=== PATIENT | female | born 1990 | race Caucasian/White ===

== ENCOUNTER → 2021-11-13 13:16 | Outpatient (BNVA) | payer OTHER, SELFPAY | PROVIDERS: Visit Provider Physician Assistant | DX: S46.811A Strain of other muscles, fascia and tendons at shoulder and upper arm level, right arm, initial encounter (principal); S29.012A Strain of muscle and tendon of back wall of thorax, initial encounter; X50.3XXA Overexertion from repetitive movements, initial encounter | CPT/HCPCS: 99203 ==

== ENCOUNTER 2023-12-25 10:42 | Outpatient (AMB) | payer OTHER, SELFPAY ==
--- NOTE | 2023-12-25 10:43 | AM.OFFWIN_ITS ---
Intake Vital Signs 12/25/23 10:46 Height 5 ft 4 in Weight 151 lb 2 oz BMI 25.9 BP 98/62 Blood Pressure Location Lt brachial Position Sitting Respiration 13 Pulse 90 Pulse Source Pulse Oximeter Temp 98.1 F Temp Source Oral Pulse Oximetry (%) 99 Oxygen Delivery Method Room Air Intake Visit Reasons: est/neck pain/left side swollen Intake Note: Patient complaining of neck pain on her left side x 3 days. Allergies No Known Allergies Allergy (Verified 12/25/23 11:06) Medication List - [facility]25[facility]23 [facility] No Known Home Meds Do you need a note to return to daycare/school/sports/work: Yes Return to daycare/school/sports/work/other note: work HPI HPI Comments History of Present Illness Details 33-year-old female here today with chief complaints of a sore neck that started on Thursday night. Reports that she was in her normal state of health when she noticed the soreness on the left side of her neck. She denies any overt injury or trauma. Over the next 3 days the pain continued. She has been using ibuprofen, warm baths, hot and cold compresses to treat at home. Reports that the heat does help. She also makes a mention that when she eats bread the back of her neck gets more inflamed. She denies any fever, chills, sore throat, trouble swallowing. Exam Awake alert oriented, no acute distress PERRLA, EOMI, no photophobia No cervical adenopathy Pharynx within normal limits Full but restricted range of motion right lateral due to pain, no nuchal rigidity, no pain with palpation, no paraspinal or cervical spine tenderness Skin intact without rashes Plan We will treat her with diclofenac and Zanaflex. Continue supportive care. Do not take dbed-yud-smanzsm NSAIDs while using diclofenac. Take with food to decreased GI upset. Gentle stretching and czbvb-mj-lvwlyd exercises encouraged. Follow up with your primary care. This note is constructed using voice recognition software. While every effort has been made to ensure accuracy in integration consultant, still errors may have been included Sometimes, these errors may affect the content or meaning of the given sentence . Physical Exam Vital Signs: Last Vital Signs Temp 98.1 F 12/25/23 10:46 Pulse 90 12/25/23 10:46 Resp 13 12/25/23 10:46 BP 98/62 12/25/23 10:46 Pulse Ox 99 12/25/23 10:46 Oxygen Delivery Method Room Air 12/25/23 10:46 BMI result Body Mass Index 25.9 Assessment & Plan Assessment & Plan (1) Cervicalgia of qfqausux-hwoklez-jgjul region: Code(s): M54.2 - Cervicalgia Plan: . Medications: New diclofenac potassium 50 mg PO BID 14 days PRN 28 tabs 0RF pain tizanidine (Zanaflex) 2 mg (1/2 x 4 mg) PO BID 5 days PRN 5 tabs 0RF muscle spasticity Coding Level of Care Code Est Pt Level 3 (84497) Diagnoses Cervicalgia of viqoacmj-euooari-ouilb region M54.2
[2023-12-25 10:46] VITALS: BP 98/62; PULSE 90; RESP 13; TEMP 36.7; O2SAT 99; BMI 25.9
== END 2023-12-25 11:14 | disposition home or self-care (01) ==
PROVIDERS: Visit Provider Nurse Practitioner Family
DX: M54.2 Cervicalgia (principal)

== ENCOUNTER → 2023-12-25 10:42 | Outpatient (BNVA) | payer OTHER, SELFPAY | DX: M54.2 Cervicalgia (principal) | CPT/HCPCS: 99212 ==